=== PATIENT | male | born 1960 | race Two or more races ===

== ENCOUNTER 2024-10-26 10:51 | Outpatient (CLI) | payer OTHER, MEDICAID ==
[~2024-10-26 10:51] MED LIST: ALBUTEROL SULF 2.5 MG/0.5ML(0.5%) NEB SOLN ONE
== END 2024-10-26 17:00 | disposition home or self-care (01) ==
LOC: RT 10:51
PROVIDERS: ATTEND Internal Medicine Pulmonary Disease
DX: J44.9 Chronic obstructive pulmonary disease, unspecified (principal); R06.00 Dyspnea, unspecified
CPT/HCPCS: 94060; 94727; 94729